=== PATIENT | male | born 1980 | race Hispanic/Latino ===

== ENCOUNTER 2017-10-28 15:09 | Inpatient (IN) | payer SELFPAY ==
[~2017-10-28] VITALS: Ht 167.6 cm; Wt 90.7 kg
[2017-10-28 16:33] LABS: APPEARANCE,URINE Clear (CLEAR); BILIRUBIN,URINE Negative (NEGATIVE); COLOR,URINE Yellow (YELLOW); GLUCOSE, URINE (UA) >=1000 mg/dL (NEGATIVE); KETONES,URINE Negative (NEGATIVE); LEUKOCYTE ESTERASE ,URINE Negative (NEGATIVE); NITRATE,URINE Negative (NEGATIVE); OCCULT BLOOD,URINE Small (NEGATIVE); PROTEIN,URINE Trace (NEGATIVE)
[2017-10-28 16:35] LABS: BASOPHILS % (AUTO) 0.5 % (0.0-5.0); EOSINOPHILS % (AUTO) 0.7 % (0.0-8.0); HEMATOCRIT 43.3 % (42-54); MEAN CORPUSCULAR HEMOGLOBIN 28.9 pg (27.0-33.0); MEAN CORPUSCULAR HGB CONC 34.3 g/dL (32.0-36.0); MEAN CORPUSCULAR VOLUME 84.2 fL (79-99); MONOCYTES % (AUTO) 5.7 % (3.0-13.0); NEUTROPHILS % (AUTO) 76.1 % (40.0-77.0); PLATELET COUNT (AUTO) 307 K/uL (130-400); RED BLOOD CELL COUNT(AUTO) 5.14 MIL/uL (4.50-6.20); WHITE BLOOD COUNT (AUTO) 11.4 K/uL (4.8-10.8)
[2017-10-28 16:44] LABS: CREATININE 0.8 mg/dL (0.5-1.5); POTASSIUM 3.6 mmol/L (3.5-5.1)
[2017-10-28 16:50] LABS: BILIRUBIN,DIRECT 0.1 mg/dL (0.0-0.3); BILIRUBIN,TOTAL 0.5 mg/dL (0.2-1.0); TOTAL PROTEIN, SERUM 7.5 g/dL (6.0-8.3)
[2017-10-28 17:04] LABS: BACTERIA,URINE Rare /HPF (None Seen); SQUAMOUS EPITHELIAL CELL,UR Rare /LPF (0-2); WBC,URINE 0-1 /HPF (0-1)
[2017-10-28] MEDS ORDERED: SODIUM CHLORIDE 0.9% 1000ML 1,000 ML IV ONE (17:19)
[2017-10-28] MEDS ORDERED: INSULIN HUMULIN R 100 UNIT/ML 3ML ONE ×2 (17:20→21:56)
[2017-10-28] MEDS ORDERED: ZOSYN 3.375GM+NS 50ML 50 ML IV ONE (17:48)
[2017-10-28] MEDS ORDERED: VANCOMYCIN 1GM+NS 250ML 250 ML IV ONE (18:23)
[2017-10-28] MEDS ORDERED: LACTULOSE 20 GM/30 ML UDCUP PO PRN (18:45)
[2017-10-28] MEDS ORDERED: GUAIFENESIN-DM 200/20 MG 10 ML PO PRN (18:45)
[2017-10-28] MEDS ORDERED: MORPHINE SULFATE 2 MG/ML 1ML SYG IV PRN (18:45)
[2017-10-28] MEDS ORDERED: ACETAMINOPHEN 325 MG TAB PO PRN ×2 (18:45)
[2017-10-28] MEDS ORDERED: ONDANSETRON HCL 4 MG/2 ML VIAL IV PRN (18:45)
[2017-10-28] MEDS ORDERED: FAMOTIDINE 20MG TAB 20 MG TAB ONE (18:47)
[2017-10-28 18:56] LABS: HEMOGLOBIN A1C 10.5 % (4.0-6.0)
[2017-10-28] MEDS: INSULIN HUMULIN R 100 UNIT/ML 3ML SQ SCH (21:00)
[2017-10-28] MEDS: FAMOTIDINE 20MG TAB 20 MG TAB PO SCH (21:00)
[2017-10-28] MEDS: ZOSYN 3.375GM+NS 50ML 50 ML IV SCH (21:00)
[2017-10-29] MEDS: ZOSYN 3.375GM+NS 50ML 50 ML IV SCH ×3 (05:00→20:39)
[2017-10-29] MEDS: INSULIN HUMULIN R 100 UNIT/ML 3ML SQ SCH ×4 (07:30→20:48)
[2017-10-29] MEDS: FAMOTIDINE 20MG TAB 20 MG TAB PO SCH ×2 (09:00→20:39)
[2017-10-29] MEDS ORDERED: ZOSYN 3.375GM+NS 50ML 50 ML IV ONE ×2 (09:49→12:30)
[2017-10-29] MEDS ORDERED: VANCOMYCIN PROTOCOL PER PHARMACY IV SCH (10:45)
[2017-10-29] MEDS ORDERED: METF500T PO (11:41)
[2017-10-29 12:11] VITALS: BP 144/72
[2017-10-29] MEDS ORDERED: FAMOTIDINE/PF 20 MG/2 ML VIAL IV ONE (12:31)
[2017-10-29] MEDS ORDERED: INSULIN HUMULIN R 100 UNIT/ML 3ML ONE (12:31)
[2017-10-29] MEDS ORDERED: COMPOUND IV REFRIGERATED 1 EACH IVSOLN MISC PRN (14:15)
[2017-10-29] MEDS: VANCOMYCIN 1.5 GM in SODIUM CHLORIDE 0.9% 250 ML IV SCH (15:10)
[2017-10-29 16:20] VITALS: BP 118/80
[2017-10-29 17:00] VITALS: BP 154/88
[2017-10-29] MEDS ORDERED: POTASSIUM CHLORIDE 20 MEQ ERTAB PO PRN (17:45)
[2017-10-29] MEDS ORDERED: POTASSIUM CHLORIDE 10% ELIXIR 20 MEQ/15 ML UDCUP PO PRN (17:45)
[2017-10-29] MEDS ORDERED: LIDOCAINE HCL-MPF 1% 2ML VIAL IVP PRN (17:45)
[2017-10-29] MEDS ORDERED: POTASSIUM CHLORIDE 20MEQ/100ML 100 ML IV PRN (17:45)
[2017-10-29 19:25] VITALS: BP 185/96
[2017-10-29] MEDS: HYDRALAZINE HCL 20 MG/ML VIAL IV PRN (20:38)
[2017-10-29] MEDS: ACETAMINOPHEN-CODEINE 300/30MG TAB PO PRN (20:39)
[2017-10-29 21:45] VITALS: BP 169/86
[2017-10-29 23:15] VITALS: BP 138/75
[2017-10-30 03:10] VITALS: BP 141/80
[2017-10-30] MEDS: VANCOMYCIN 1.5 GM in SODIUM CHLORIDE 0.9% 250 ML IV SCH ×2 (03:29→16:54)
[2017-10-30] MEDS: ZOSYN 3.375GM+NS 50ML 50 ML IV SCH ×3 (05:07→20:45)
[2017-10-30 05:46] LABS: HEMATOCRIT 39.1 % (42-54); MEAN CORPUSCULAR HEMOGLOBIN 28.8 pg (27.0-33.0); MEAN CORPUSCULAR HGB CONC 34.4 g/dL (32.0-36.0); MEAN CORPUSCULAR VOLUME 83.7 fL (79-99); PLATELET COUNT (AUTO) 297 K/uL (130-400); RED BLOOD CELL COUNT(AUTO) 4.67 MIL/uL (4.50-6.20); RED CELL DISTRIBUTION WIDTH 12.5 % (11.0-15.5)
[2017-10-30 06:09] LABS: CREATININE 0.8 mg/dL (0.5-1.5); POTASSIUM 3.6 mmol/L (3.5-5.1)
[2017-10-30] MEDS: INSULIN HUMULIN R 100 UNIT/ML 3ML SQ SCH ×4 (06:48→21:02)
[2017-10-30] MEDS ORDERED: HONEY 1 APPL/ML TUBE TP SCH (07:15)
[2017-10-30 08:00] VITALS: BP 174/92
[2017-10-30] MEDS: HONEY 1 APPL/ML TUBE TP SCH (08:00)
[2017-10-30] MEDS: FAMOTIDINE 20MG TAB 20 MG TAB PO SCH ×2 (09:31→20:45)
[2017-10-30 12:05] VITALS: BP 167/82
[2017-10-30 16:00] VITALS: BP 174/88
[2017-10-30] MEDS: DIPH,PERTUSS(ACELL),TET VAC/PF 0.5 ML VIAL IM SCH (16:54)
[2017-10-30 20:00] VITALS: BP 176/73
[2017-10-30 23:45] VITALS: BP 173/86
[2017-10-31] VITALS (34 sets, daily range): BP systolic 105–167; BP diastolic 54–82
[2017-10-31] MEDS: HYDRALAZINE HCL 20 MG/ML VIAL IV PRN (00:10)
[2017-10-31 02:14] LABS: HEMATOCRIT 39.8 % (42-54); MEAN CORPUSCULAR HEMOGLOBIN 29.1 pg (27.0-33.0); MEAN CORPUSCULAR HGB CONC 34.9 g/dL (32.0-36.0); MEAN CORPUSCULAR VOLUME 83.6 fL (79-99); NUCLEATED RED BLOOD CELLS 0.1 % (0.0-0.19); PLATELET COUNT (AUTO) 287 K/uL (130-400); RED BLOOD CELL COUNT(AUTO) 4.76 MIL/uL (4.50-6.20); RED CELL DISTRIBUTION WIDTH 12.7 % (11.0-15.5); WHITE BLOOD COUNT (AUTO) 10.7 K/uL (4.8-10.8)
[2017-10-31 02:56] LABS: CREATININE 0.8 mg/dL (0.5-1.5); POTASSIUM 3.3 mmol/L (3.5-5.1)
[2017-10-31] MEDS: VANCOMYCIN 1.5 GM in SODIUM CHLORIDE 0.9% 250 ML IV SCH ×2 (03:23→16:24)
[2017-10-31] MEDS: ZOSYN 3.375GM+NS 50ML 50 ML IV SCH ×3 (05:24→21:48)
[2017-10-31] MEDS: INSULIN HUMULIN R 100 UNIT/ML 3ML SQ SCH ×4 (06:08→21:38)
[2017-10-31] MEDS ORDERED: BUPIVACAINE/PF 0.5% 30ML VIAL ONE (07:43)
[2017-10-31] MEDS ORDERED: LIDOCAINE HCL 1% 20 ML VIAL ONE (07:43)
[2017-10-31] MEDS: HONEY 1 APPL/ML TUBE TP SCH (08:00)
[2017-10-31] MEDS ORDERED: DEXAMETHASONE SOD PHOSPHATE 10MG/ML 1ML VIAL ONE (08:09)
[2017-10-31] MEDS ORDERED: ONDANSETRON HCL 4 MG/2 ML VIAL ONE (08:09)
[2017-10-31] MEDS ORDERED: GLYCOPYRROLATE 0.2 MG/ML 5 ML VIAL ONE (08:09)
[2017-10-31] MEDS ORDERED: LIDOCAINE PF 2% 5ML ABBOJECT ONE (08:10)
[2017-10-31] MEDS ORDERED: PROPOFOL 10 MG/ML 20ML VIAL IV ONE ×2 (08:10→08:15)
[2017-10-31] MEDS ORDERED: MIDAZOLAM HCL 1 MG/ML 2ML VIAL ONE (08:10)
[2017-10-31] MEDS ORDERED: FENTANYL CITRATE PF 50 MCG/1 ML 2ML VIAL ONE (08:10)
[2017-10-31] MEDS: FAMOTIDINE 20MG TAB 20 MG TAB PO SCH ×2 (09:00→21:48)
[2017-10-31] MEDS ORDERED: MEPERIDINE-PF 25 MG/ML SYG ONE ×2 (10:04→10:16)
[2017-10-31] MEDS ORDERED: SODIUM CHLORIDE 0.9% 1000ML 1,000 ML IV ONE (12:25)
[2017-10-31] MEDS: DIPH,PERTUSS(ACELL),TET VAC/PF 0.5 ML VIAL IM SCH (15:15)
[2017-10-31] MEDS: ACETAMINOPHEN-CODEINE 300/30MG TAB PO PRN (16:15)
[2017-10-31] MEDS: HYDROMORPHONE 1 MG/1 ML AMP IVP PRN ×2 (17:14→21:48)
[2017-11-01 04:22] VITALS: BP 146/75
[2017-11-01] MEDS: VANCOMYCIN 1.5 GM in SODIUM CHLORIDE 0.9% 250 ML IV SCH ×2 (04:24→15:05)
[2017-11-01] MEDS: INSULIN HUMULIN R 100 UNIT/ML 3ML SQ SCH ×4 (05:55→20:48)
[2017-11-01] MEDS: ACETAMINOPHEN-CODEINE 300/30MG TAB PO PRN ×3 (06:06→20:59)
[2017-11-01] MEDS: ZOSYN 3.375GM+NS 50ML 50 ML IV SCH ×3 (06:06→20:47)
[2017-11-01 08:03] VITALS: BP 158/80
[2017-11-01] MEDS: FAMOTIDINE 20MG TAB 20 MG TAB PO SCH ×2 (08:59→20:47)
[2017-11-01 11:58] VITALS: BP 158/81
[2017-11-01] MEDS: DIPH,PERTUSS(ACELL),TET VAC/PF 0.5 ML VIAL IM SCH (15:15)
[2017-11-01 16:38] VITALS: BP 176/85
[2017-11-01 20:05] VITALS: BP 168/84
[2017-11-01] MEDS: HYDRALAZINE HCL 20 MG/ML VIAL IV PRN (20:51)
[2017-11-02] VITALS (9 sets, daily range): BP systolic 126–188; BP diastolic 67–84
[2017-11-02] MEDS: VANCOMYCIN 1.5 GM in SODIUM CHLORIDE 0.9% 250 ML IV SCH ×2 (03:23→15:40)
[2017-11-02] MEDS: ZOSYN 3.375GM+NS 50ML 50 ML IV SCH (05:04)
[2017-11-02] MEDS: INSULIN HUMULIN R 100 UNIT/ML 3ML SQ SCH ×4 (06:19→20:20)
[2017-11-02] MEDS ORDERED: FLU VACC QS2017-18 36MOS UP/PF 60 MCG/0.5 ML ML IM SCH (06:45)
[2017-11-02] MEDS: FAMOTIDINE 20MG TAB 20 MG TAB PO SCH ×2 (10:34→20:13)
[2017-11-02] MEDS ORDERED: PIPERACILLIN SODIUM/TAZOBACTAM 3.375 GM VIAL IV SCH (12:00)
[2017-11-02] MEDS: HYDRALAZINE HCL 20 MG/ML VIAL IV PRN ×2 (13:07→20:23)
[2017-11-02] MEDS: AMOXICILLIN 500 MG CAPSULE PO SCH (18:26)
[2017-11-02] MEDS ORDERED: METOPROLOL TARTRATE 1 MG/ML 5ML VIAL IV ONE (22:09)
[2017-11-02] MEDS ORDERED: METOPROLOL TARTRATE 1 MG/ML 5ML VIAL IV SCH (22:15)
[2017-11-03] MEDS: AMOXICILLIN 500 MG CAPSULE PO SCH ×3 (00:12→15:17)
[2017-11-03 03:00] VITALS: BP 139/71
[2017-11-03] MEDS: INSULIN HUMULIN R 100 UNIT/ML 3ML SQ SCH ×2 (05:53→11:47)
[2017-11-03 07:56] VITALS: BP 165/80
[2017-11-03] MEDS ORDERED: LEVOFLOXACIN 750 MG TABLET PO SCH (09:00)
[2017-11-03] MEDS: FAMOTIDINE 20MG TAB 20 MG TAB PO SCH (09:46)
[2017-11-03 11:28] VITALS: BP 169/50
[2017-11-03] MEDS ORDERED: LEVO500S PO (14:16)
[2017-11-03] MEDS ORDERED: AMOX500C2 PO (14:18)
== END 2017-11-03 15:54 | disposition home or self-care (01) | DRG 617 ==
LOC: EDH 15:09 → OBSVTOIN 15:10 → EDHIP 15:10 → 4CH 10-29 16:33
PROVIDERS: ADMIT Family Medicine; ATTEND Family Medicine
PROC: 3E0234Z Introduction of Serum, Toxoid and Vaccine into Muscle, Percutaneous Approach (ICD-10-PCS; 2017-10-31)
PROC: 0Y6M0ZF Detachment at Right Foot, Partial 5th Ray, Open Approach (ICD-10-PCS; principal; 2017-10-31 08:05)
DX: E11.621 Type 2 diabetes mellitus with foot ulcer (principal); L03.116 Cellulitis of left lower limb; E11.40 Type 2 diabetes mellitus with diabetic neuropathy, unspecified; M86.8X7 Other osteomyelitis, ankle and foot; E66.01 Morbid (severe) obesity due to excess calories; E11.65 Type 2 diabetes mellitus with hyperglycemia; E11.69 Type 2 diabetes mellitus with other specified complication; I10 Essential (primary) hypertension; L97.519 Non-pressure chronic ulcer of other part of right foot with unspecified severity; L97.529 Non-pressure chronic ulcer of other part of left foot with unspecified severity; M77.30 Calcaneal spur, unspecified foot; D72.829 Elevated white blood cell count, unspecified; Z68.32 Body mass index [BMI] 32.0-32.9, adult; Z23 Encounter for immunization; Z83.3 Family history of diabetes mellitus
CPT/HCPCS: 36415; 73630; 73718; 80048; 80076; 80202; 81001; 82948; 83036; 85025; 85027; 87070; 87076; 87205; 88304; 88305; 88311; 90715; 93926; A4218; G0008; J0360; J1100; J1170; J1815; J2001; J2175; J2250; J2405; J2543; J2704; J3010; J3370; J3480; J3490; J7030; Q2038

== ENCOUNTER 2018-07-20 02:56 | Emergency (ER) | payer MEDICAID ==
[~2018-07-20 02:56] MED LIST: AMOX500C2 PO; LEVO500S PO; METF500T PO
[2018-07-20] MEDS ORDERED: CYCLOBENZAPRINE HCL 10 MG TABLET ONE (03:37)
[2018-07-20] MEDS ORDERED: KETOROLAC TROMETHAMINE 30MG/ML ONE (03:37)
== END 2018-07-20 04:31 | disposition home or self-care (01) ==
LOC: EDH 02:56
DX: M54.5 Low back pain (principal); M62.838 Other muscle spasm; R20.2 Paresthesia of skin; E11.9 Type 2 diabetes mellitus without complications; Z98.890 Other specified postprocedural states
CPT/HCPCS: 96372; 99283; J1885

== ENCOUNTER → 2021-01-08 | Outpatient (CLI) | payer MEDICAID ==
[~2021-01-08] MED LIST changes: -AMOX500C2 PO; +BENZ-39 PO; +GABA-529 PO; +GLYB5TAB8 PO; +HYDR12.530 PO; -LEVO500S PO; +LEVO500T2 PO; +LIDOCAINE HCL 2% JELLY 5 ML TP ONE; +LISI20TA24 PO
== END | disposition home or self-care (01) ==
LOC: WHH 08:00
PROVIDERS: ATTEND Family Medicine
DX: L02.212 Cutaneous abscess of back [any part, except buttock and flank] (principal); E11.628 Type 2 diabetes mellitus with other skin complications; E11.22 Type 2 diabetes mellitus with diabetic chronic kidney disease; I12.9 Hypertensive chronic kidney disease with stage 1 through stage 4 chronic kidney disease, or unspecified chronic kidney disease; N18.9 Chronic kidney disease, unspecified; E66.9 Obesity, unspecified; J44.9 Chronic obstructive pulmonary disease, unspecified; Z89.422 Acquired absence of other left toe(s)
CPT/HCPCS: 10060; 87070; 87077 ×2; 87186 ×2; A4450; 10160

== ENCOUNTER → 2021-01-15 | Outpatient (CLI) | payer MEDICAID | END | disposition home or self-care (01) | LOC: WHH 07:55 | PROVIDERS: ATTEND Family Medicine | DX: L02.212 Cutaneous abscess of back [any part, except buttock and flank] (principal); E11.22 Type 2 diabetes mellitus with diabetic chronic kidney disease; I12.9 Hypertensive chronic kidney disease with stage 1 through stage 4 chronic kidney disease, or unspecified chronic kidney disease; E66.9 Obesity, unspecified; N18.9 Chronic kidney disease, unspecified; J44.9 Chronic obstructive pulmonary disease, unspecified; Z68.42 Body mass index [BMI] 45.0-49.9, adult | CPT/HCPCS: 99214 ==

== ENCOUNTER 2021-01-22 08:00 | Outpatient (CLI) | payer MEDICAID ==
[~2021-01-22 08:00] MED LIST changes: -LIDOCAINE HCL 2% JELLY 5 ML TP ONE
== END 2021-01-22 14:38 | disposition home or self-care (01) ==
LOC: WHH 08:00
PROVIDERS: ATTEND Family Medicine
DX: L02.212 Cutaneous abscess of back [any part, except buttock and flank] (principal); E11.22 Type 2 diabetes mellitus with diabetic chronic kidney disease; I12.9 Hypertensive chronic kidney disease with stage 1 through stage 4 chronic kidney disease, or unspecified chronic kidney disease; E66.9 Obesity, unspecified; N18.9 Chronic kidney disease, unspecified; J44.9 Chronic obstructive pulmonary disease, unspecified; Z68.42 Body mass index [BMI] 45.0-49.9, adult
CPT/HCPCS: 99214

== ENCOUNTER → 2021-04-30 | Outpatient (CLI) | payer MEDICAID ==
[~2021-04-30] MED LIST changes: +LIDOCAINE HCL 4% LTA SOL 4 ML VIAL TP ONE
== END | disposition home or self-care (01) ==
LOC: WHH 08:20
PROVIDERS: ATTEND Family Medicine
DX: L02.212 Cutaneous abscess of back [any part, except buttock and flank] (principal); E11.22 Type 2 diabetes mellitus with diabetic chronic kidney disease; I12.9 Hypertensive chronic kidney disease with stage 1 through stage 4 chronic kidney disease, or unspecified chronic kidney disease; E66.9 Obesity, unspecified; E78.5 Hyperlipidemia, unspecified; N18.9 Chronic kidney disease, unspecified; J44.9 Chronic obstructive pulmonary disease, unspecified; Z68.42 Body mass index [BMI] 45.0-49.9, adult
CPT/HCPCS: 99215

== ENCOUNTER → 2021-05-07 | Outpatient (CLI) | payer MEDICAID ==
[~2021-05-07] MED LIST changes: -LIDOCAINE HCL 4% LTA SOL 4 ML VIAL TP ONE
== END | disposition home or self-care (01) ==
LOC: WHH 08:10
PROVIDERS: ATTEND Family Medicine
DX: L02.212 Cutaneous abscess of back [any part, except buttock and flank] (principal); E11.22 Type 2 diabetes mellitus with diabetic chronic kidney disease; I12.9 Hypertensive chronic kidney disease with stage 1 through stage 4 chronic kidney disease, or unspecified chronic kidney disease; E66.9 Obesity, unspecified; E78.5 Hyperlipidemia, unspecified; N18.9 Chronic kidney disease, unspecified; J44.9 Chronic obstructive pulmonary disease, unspecified; Z68.41 Body mass index [BMI] 40.0-44.9, adult
CPT/HCPCS: 99214